=== PATIENT | male | born 1945 | race Caucasian/White ===

== ENCOUNTER 2016-06-09 11:15 | Inpatient (IN) | payer OTHER ==
[~2016-06-09] VITALS: Ht 182.9 cm; Wt 108.4 kg
[~2016-06-09 11:15] MED LIST: ALBU18HF INH; ALBU2.5V NEB; AMLO10TA2 PO; CYCL5TAB PO; DIPH25CA61 PO; FLUT16SP NAS; FLUT1DIS3 INH; HYDR-3138 PO; LISI40TA PO; LOSA50TA6 PO; METO50TA82 PO; PENT400T2 PO; SIMV40TA3 PO; TERA5CAP3 PO; TIOT18CA INH; WARF7.5T6 PO
[2016-06-09] MEDS ORDERED: ONDANSETRON 2MG/ML, 2ML ONE (11:41)
[2016-06-09 11:59] LABS: BLOOD UREA NITROGEN 23 mg/dL (7-18)
[2016-06-09] MEDS ORDERED: ONDANSETRON 2MG/ML, 2ML IVPush ONE (12:00)
[2016-06-09 12:05] LABS: ASPARTATE AMINO TRANSFERASE 36 U/L (15-37); IS PT STATUS REG ER OR PRE ER? YES
[2016-06-09 12:07] LABS: ANTI-Xa-UNFRACTIONATED HEP 0.05 IU/mL (0.30-0.70)
[2016-06-09] MEDS ORDERED: OMNIPAQUE 350 MG/ML, 100ML BOTTLE ONE (12:54)
[2016-06-09 13:01] LABS: ACETAMINOPHEN < 2 mcg/mL (10-30)
[2016-06-09] MEDS ORDERED: SODIUM CHLORIDE 0.9% 1,000 ML IV ONE (13:27)
[2016-06-09] MEDS ORDERED: SODIUM CHLORIDE 0.9% 1,000ML IVBOLUS ONE (13:30)
[2016-06-09] MEDS ORDERED: HYDR-3307 PO (13:34)
[2016-06-09] MEDS ORDERED: CYCLOBENZAPRINE 10 MG TABLET PO PRN (14:00)
[2016-06-09] MEDS ORDERED: SODIUM CHLORIDE FLUSH 10ML SYR IVF PRN (14:00)
[2016-06-09] MEDS ORDERED: HYDROcodone/APAP 10/325 MG TABLET PO PRN (14:00)
[2016-06-09] MEDS ORDERED: OXYcodone IR 5MG TABLET PO PRN (15:00)
[2016-06-09] MEDS ORDERED: ACETAMINOPHEN 325 MG TABLET PO PRN (15:00)
[2016-06-09] MEDS ORDERED: POLYETHYLENE GLYCOL 17 GM PACKET PO PRN (15:00)
[2016-06-09] MEDS ORDERED: BISACODYL 10 MG SUPP PR PRN (15:00)
[2016-06-09] MEDS ORDERED: MORPHINE SULFATE 4 MG/ML, 1ML IVPush PRN (15:00)
[2016-06-09] MEDS ORDERED: ENALAPRILAT 1.25 MG/ML, 2ML IVPush PRN (15:00)
[2016-06-09 15:40] VITALS: BP 140/86
[2016-06-09] MEDS: LOSARTAN MC SCH ×4 (16:00→23:56)
[2016-06-09] MEDS: NICOTINE 14MG/24 HR PATCH.TD24 TD SCH (16:00)
[2016-06-09] MEDS ORDERED: ALBUTEROL/IPRATROPIUM 2.5MG/0.5MG, 3 ML NPPB SCH (16:00)
[2016-06-09] MEDS ORDERED: ONDANSETRON 2MG/ML, 2ML IVP PRN (17:45)
[2016-06-09] MEDS: HEPARIN 5,000 UNITS/ML, 1ML SQ SCH ×2 (17:54→23:56)
[2016-06-09] MEDS: methylPREDNISolone SOD SUCC 125 MG/2 ML IVPush SCH ×2 (17:54→23:56)
[2016-06-09] MEDS: PENTOXIFYLLINE 400 MG TABLET.ER PO SCH ×2 (17:54→21:00)
[2016-06-09] MEDS: DILTIAZEM 30 MG TABLET PO SCH ×2 (17:54→21:00)
[2016-06-09 19:55] LABS: DAU SCREEN DISCLAIMER
[2016-06-09 20:00] VITALS: BP 130/75
[2016-06-09] MEDS ORDERED: DIPHENHYDRAMINE 25 MG CAPSULE PO PRN (21:00)
[2016-06-09] MEDS: TERAZOSIN 5MG CAPSULE PO SCH (21:00)
[2016-06-09] MEDS: FLUTICASONE NASAL SPRAY 16GM NAS SCH (21:24)
[2016-06-09] MEDS: LOSARTAN 50MG TABLET PO SCH (21:25)
[2016-06-09] MEDS: SIMVASTATIN 40 MG TABLET PO SCH (21:26)
[2016-06-10] MEDS ORDERED: MAGNESIUM SULFATE PMX 2GM/50ML 50 ML IV ONE (01:30)
[2016-06-10 02:00] VITALS: BP 133/68
[2016-06-10 04:00] VITALS: BP 138/76
[2016-06-10 04:52] LABS: HEMOGLOBIN 13.6 g/dL (13.7-18.0)
[2016-06-10 05:02] LABS: BLOOD UREA NITROGEN 16 mg/dL (7-18)
[2016-06-10 05:07] LABS: ASPARTATE AMINO TRANSFERASE 22 U/L (15-37)
[2016-06-10] MEDS: methylPREDNISolone SOD SUCC 125 MG/2 ML IVPush SCH ×3 (05:39→17:48)
[2016-06-10] MEDS: DILTIAZEM 30 MG TABLET PO SCH ×4 (05:39→20:17)
[2016-06-10] MEDS ORDERED: IPRATROPIUM 0.5 MG/2.5 ML INHA NPPB SCH (06:00)
[2016-06-10 06:39] VITALS: BP 138/75
[2016-06-10] MEDS: LOSARTAN MC SCH ×2 (08:00)
[2016-06-10] MEDS ORDERED: LORazepam 2 MG/ML, 1ML IVPush ONE (08:30)
[2016-06-10] MEDS: SENNA/DOCUSATE TABLET PO SCH (09:00)
[2016-06-10] MEDS: FLUTICASONE NASAL SPRAY 16GM NAS SCH ×2 (09:00→20:15)
[2016-06-10] MEDS: AMLODIPINE 5 MG TABLET PO SCH (10:40)
[2016-06-10] MEDS: HEPARIN 5,000 UNITS/ML, 1ML SQ SCH ×2 (10:40→17:48)
[2016-06-10] MEDS: PENTOXIFYLLINE 400 MG TABLET.ER PO SCH ×3 (10:41→20:16)
[2016-06-10] MEDS: LOSARTAN 50MG TABLET PO SCH ×2 (10:41→20:17)
[2016-06-10 12:37] VITALS: BP 141/86
[2016-06-10] MEDS: NICOTINE 14MG/24 HR PATCH.TD24 TD SCH (16:00)
[2016-06-10] MEDS ORDERED: WARFARIN 3 MG TABLET PO-COUM SCH (18:00)
[2016-06-10 20:00] VITALS: BP 126/75
[2016-06-10] MEDS: SIMVASTATIN 40 MG TABLET PO SCH (20:16)
[2016-06-10] MEDS: TERAZOSIN 5MG CAPSULE PO SCH (20:18)
[2016-06-10] MEDS: IPRATROPIUM 0.5 MG/2.5 ML INHA NPPB SCH (20:47)
[2016-06-11] MEDS: HEPARIN 5,000 UNITS/ML, 1ML SQ SCH ×2 (01:03→09:39)
[2016-06-11] MEDS: methylPREDNISolone SOD SUCC 125 MG/2 ML IVPush SCH ×3 (01:04→13:08)
[2016-06-11 01:10] VITALS: BP 126/76
[2016-06-11 04:00] VITALS: BP 163/77
[2016-06-11] MEDS: DILTIAZEM 30 MG TABLET PO SCH ×2 (06:00→11:12)
[2016-06-11 07:12] VITALS: BP 143/78
[2016-06-11] MEDS ORDERED: NALOXONE 1 MG/ML, 2ML ONE (08:37)
[2016-06-11] MEDS ORDERED: MIDAZOLAM 1 MG/ML, 5ML ONE ×2 (08:37)
[2016-06-11] MEDS ORDERED: FENTANYL PF 100 MCG/2ML ONE (08:37)
[2016-06-11] MEDS ORDERED: FLUMAZENIL 0.1 MG/1 ML, 5ML ONE (08:37)
[2016-06-11] MEDS: AMLODIPINE 5 MG TABLET PO SCH (09:39)
[2016-06-11] MEDS: SENNA/DOCUSATE TABLET PO SCH (09:39)
[2016-06-11] MEDS: LOSARTAN 50MG TABLET PO SCH (09:39)
[2016-06-11] MEDS: PENTOXIFYLLINE 400 MG TABLET.ER PO SCH (09:40)
[2016-06-11] MEDS: FLUTICASONE NASAL SPRAY 16GM NAS SCH (09:40)
[2016-06-11] MEDS: IPRATROPIUM 0.5 MG/2.5 ML INHA NPPB SCH (09:54)
[2016-06-11 13:45] VITALS: BP 161/87
[2016-06-11] MEDS ORDERED: DILT60TA30 PO (13:49)
[2016-06-11] MEDS ORDERED: DOCU-30 PO (13:49)
[2016-06-11] MEDS ORDERED: PRED5TAB PO (13:49)
[2016-06-11] MEDS ORDERED: WARF5TAB PO-COUM (13:49)
[2016-06-11] MEDS ORDERED: WARFARIN 5 MG TABLET PO-COUM SCH (18:00)
== END 2016-06-11 16:14 | disposition home or self-care (01) | DRG 682 ==
LOC: ED 13:36 → EDIP 13:37 → ED 13:42 → 4EST 15:32
PROVIDERS: ADMIT Internal Medicine; ATTEND Internal Medicine
DX: N17.0 Acute kidney failure with tubular necrosis (principal); G93.41 Metabolic encephalopathy; J44.1 Chronic obstructive pulmonary disease with (acute) exacerbation; D68.59 Other primary thrombophilia; G45.9 Transient cerebral ischemic attack, unspecified; J98.11 Atelectasis; I48.2 Chronic atrial fibrillation; D75.89 Other specified diseases of blood and blood-forming organs; E78.5 Hyperlipidemia, unspecified; F17.200 Nicotine dependence, unspecified, uncomplicated; F40.240 Claustrophobia; I34.0 Nonrheumatic mitral (valve) insufficiency; I73.9 Peripheral vascular disease, unspecified; M17.12 Unilateral primary osteoarthritis, left knee; I11.9 Hypertensive heart disease without heart failure; R59.0 Localized enlarged lymph nodes; N40.0 Benign prostatic hyperplasia without lower urinary tract symptoms; R09.02 Hypoxemia; T45.515A Adverse effect of anticoagulants, initial encounter; Z59.9 Problem related to housing and economic circumstances, unspecified; Z79.01 Long term (current) use of anticoagulants; Z86.718 Personal history of other venous thrombosis and embolism; Z86.73 Personal history of transient ischemic attack (TIA), and cerebral infarction without residual deficits; Z91.19 Patient's noncompliance with other medical treatment and regimen; Z90.79 Acquired absence of other genital organ(s); Z99.81 Dependence on supplemental oxygen; Z90.49 Acquired absence of other specified parts of digestive tract
CPT/HCPCS: 36415; 70450; 70551; 71010; 71275; 80047; 80053; 80061; 80307; 80329; 81001; 82140; 82306; 82607; 82962; 83036; 83605; 83735; 84439; 84443; 84484; 85025; 85520; 85610; 85730; 93005; 93306; 93880; 94640; 96374; J1644; J2250; J2405; J3010; J7644; Q9967; G0480; J2310; J2930; J3475; J7030

== ENCOUNTER → 2016-10-06 | Outpatient (CLI) | payer OTHER ==
[~2016-10-06] MED LIST changes: +DILT60TA30 PO; +DOCU-30 PO; +HYDR-3307 PO; +PRED5TAB PO; +WARF5TAB PO-COUM
== END | disposition home or self-care (01) ==
LOC: CFH 10:16
PROVIDERS: ATTEND Internal Medicine
DX: J43.2 Centrilobular emphysema (principal); I25.10 Atherosclerotic heart disease of native coronary artery without angina pectoris; M25.78 Osteophyte, vertebrae; N28.89 Other specified disorders of kidney and ureter
CPT/HCPCS: 71250

== ENCOUNTER → 2017-02-23 | Outpatient (CLI) | payer OTHER ==
[~2017-02-23] MED LIST changes: +DOCU-131 PO; -DOCU-30 PO; -HYDR-3138 PO; +HYDR-3237 PO
== END ==
LOC: CVU 09:32
PROVIDERS: ATTEND Surgery
DX: I65.23 Occlusion and stenosis of bilateral carotid arteries (principal); I70.203 Unspecified atherosclerosis of native arteries of extremities, bilateral legs; I70.0 Atherosclerosis of aorta; E78.5 Hyperlipidemia, unspecified; I10 Essential (primary) hypertension; I48.91 Unspecified atrial fibrillation; Z86.73 Personal history of transient ischemic attack (TIA), and cerebral infarction without residual deficits
CPT/HCPCS: 93880; 93978

== ENCOUNTER → 2017-03-29 | Outpatient (CLI) | payer OTHER | END | disposition home or self-care (01) | LOC: RAD 12:09 | PROVIDERS: ATTEND Internal Medicine | DX: J44.9 Chronic obstructive pulmonary disease, unspecified (principal); M51.34 Other intervertebral disc degeneration, thoracic region | CPT/HCPCS: 71046 ==

== ENCOUNTER → 2017-09-14 | Outpatient (CLI) | payer OTHER ==
[~2017-09-14] MED LIST changes: -PENT400T2 PO; +PENT400T9 PO; +WARF7.5T46 PO; -WARF7.5T6 PO
== END | disposition home or self-care (01) ==
LOC: CFH 09:51
PROVIDERS: ATTEND Internal Medicine Nephrology
DX: Z12.2 Encounter for screening for malignant neoplasm of respiratory organs (principal); I25.10 Atherosclerotic heart disease of native coronary artery without angina pectoris; N40.0 Benign prostatic hyperplasia without lower urinary tract symptoms; K57.30 Diverticulosis of large intestine without perforation or abscess without bleeding; N28.1 Cyst of kidney, acquired
CPT/HCPCS: 74176; G0297

== ENCOUNTER 2017-12-29 19:27 | Inpatient (IN) | payer OTHER ==
[~2017-12-29] VITALS: Ht 182.9 cm; Wt 105.6 kg
[~2017-12-29 19:27] MED LIST changes: -AMLO10TA2 PO; +AMLO10TA6 PO; -LOSA50TA6 PO; +LOSA50TA7 PO
[2017-12-29] MEDS ORDERED: PANTOPRAZOLE 80 MG in SODIUM CHLORIDE 0.9% 100 ML IV SCH (19:50)
[2017-12-29] MEDS ORDERED: SODIUM CHLORIDE 0.9% 1,000ML IVBOLUS ONE (20:00)
[2017-12-29 20:12] LABS: BASOPHILS # (AUTO) 0.05 x10^3/uL (0-0.1); BASOPHILS % (AUTO) 1 % (0-1); EOSINOPHILS % (AUTO) 4 % (1-7); LYMPHOCYTES # (AUTO) 2.01 x10^3/uL (1-3.4); LYMPHOCYTES % (AUTO) 25 % (22-44); MD NO; MEAN CORPUSCULAR HGB CONC 33.2 g/dL (33.2-36.2); MEAN CORPUSCULAR VOLUME 99.3 fL (81-97); MEAN PLATELET VOLUME 7.2 fL (7.4-10.4); MONOCYTES # (AUTO) 0.76 x10^3/uL (0.2-0.8); MONOCYTES % (AUTO) 9 % (2-9); NEUTROPHILS # (AUTO) 4.95 x10^3/uL (1.8-6.8); NEUTROPHILS % (AUTO) 61 % (42-75); PLATELET COUNT 204 x10^3/uL (130-400); RED BLOOD COUNT 2.83 x10^6/uL (4.38-5.82)
[2017-12-29 20:19] LABS: INTERNATIONAL NORMALIZED RATIO 3.22 (0.93-1.1); PROTHROMBIN TIME 32.7 Seconds (9.6-11.5)
[2017-12-29 20:22] LABS: ALANINE AMINOTRANSFERASE 21 U/L (12-78); ALBUMIN 2.9 g/dL (3.4-5.0); ANION GAP 10 mmol/L (5-15); CALCIUM 8.1 mg/dL (8.5-10.1); CHLORIDE 110 mmol/L (98-107); CREATININE 1.32 mg/dL (0.7-1.3)
[2017-12-29 20:26] LABS: ALKALINE PHOSPHATASE 60 U/L (45-117); BILIRUBIN,TOTAL 0.5 mg/dL (0.2-1.0); TOTAL PROTEIN 5.7 g/dL (6.4-8.2); TROPONIN I < 0.015 ng/mL (0.000-0.045)
[2017-12-29] MEDS ORDERED: PROMETHAZINE 25 MG/ML, 1ML ONE (20:27)
[2017-12-29] MEDS ORDERED: PROMETHAZINE 25 MG/ML, 1ML IM ONE (20:30)
[2017-12-29] MEDS: PANTOPRAZOLE 80 MG in SODIUM CHLORIDE 0.9% 50 ML IVPB ONE ×2 (20:31→21:42)
[2017-12-29] MEDS ORDERED: SODIUM CHLORIDE 0.9% 1,000 ML IV SCH (21:30)
[2017-12-29] MEDS: PANTOPRAZOLE 80 MG in SODIUM CHLORIDE 0.9% 100 ML IV SCH (21:30)
[2017-12-29] MEDS ORDERED: ONDANSETRON 2MG/ML, 2ML IVPush PRN (21:30)
[2017-12-29] MEDS ORDERED: TRELEGY ELLIPTA (21:33)
[2017-12-29] MEDS ORDERED: WARFARIN (21:33)
[2017-12-29] MEDS ORDERED: PRAV40TA2 PO (21:33)
[2017-12-29] MEDS ORDERED: CARTIA (21:33)
[2017-12-29 22:47] VITALS: BP 132/76
[2017-12-29 23:44] VITALS: BP 109/72
[2017-12-30] VITALS (10 sets, daily range): BP systolic 100–142; BP diastolic 49–82
[2017-12-30] MEDS ORDERED: ALBUTEROL SULFATE 2.5 MG/3 ML NPPB PRN
[2017-12-30 04:48] LABS: INTERNATIONAL NORMALIZED RATIO 2.07 (0.93-1.1); PROTHROMBIN TIME 21.2 Seconds (9.6-11.5)
[2017-12-30 04:53] LABS: ALBUMIN 2.9 g/dL (3.4-5.0); ANION GAP 8 mmol/L (5-15); CHLORIDE 118 mmol/L (98-107)
[2017-12-30 04:57] LABS: BASOPHILS # (AUTO) 0.04 x10^3/uL (0-0.1); BASOPHILS % (AUTO) 1 % (0-1); EOSINOPHILS # (AUTO) 0.18 x10^3/uL (0-0.4); EOSINOPHILS % (AUTO) 3 % (1-7); LYMPHOCYTES # (AUTO) 2.08 x10^3/uL (1-3.4); LYMPHOCYTES % (AUTO) 35 % (22-44); MD NO; MEAN CORPUSCULAR HEMOGLOBIN 34.5 pg (27.5-34.5); MEAN CORPUSCULAR HGB CONC 34.6 g/dL (33.2-36.2); MEAN CORPUSCULAR VOLUME 99.8 fL (81-97); MEAN PLATELET VOLUME 7.1 fL (7.4-10.4); MONOCYTES # (AUTO) 0.67 x10^3/uL (0.2-0.8); MONOCYTES % (AUTO) 11 % (2-9); NEUTROPHILS # (AUTO) 2.96 x10^3/uL (1.8-6.8); NEUTROPHILS % (AUTO) 50 % (42-75); PLATELET COUNT 157 x10^3/uL (130-400); RED BLOOD COUNT 2.39 x10^6/uL (4.38-5.82); RED CELL DISTRIBUTION WIDTH 13.5 % (9.4-14.8)
[2017-12-30 04:58] LABS: ALANINE AMINOTRANSFERASE 21 U/L (12-78); ALKALINE PHOSPHATASE 54 U/L (45-117); BILIRUBIN,TOTAL 0.5 mg/dL (0.2-1.0); CALCIUM 8.1 mg/dL (8.5-10.1); CREATININE 1.05 mg/dL (0.7-1.3); TOTAL PROTEIN 5.4 g/dL (6.4-8.2)
[2017-12-30] MEDS: PANTOPRAZOLE 80 MG in SODIUM CHLORIDE 0.9% 100 ML IV SCH ×2 (06:27→17:33)
[2017-12-30] MEDS ORDERED: DILTIAZEM 5 MG/ML, 5ML IVPush ONE (09:30)
[2017-12-30] MEDS: D5%-0.45NACL+KCL 20MEQ 1,000 ML IV SCH ×2 (09:34→21:28)
[2017-12-30] MEDS: METOPROLOL TARTRATE 25 MG TABLET PO SCH ×2 (09:34→17:37)
[2017-12-30] MEDS: FLUTICASONE/VILANTEROL 200-25MCG/INH INH SCH (12:11)
[2017-12-30 16:39] LABS: TROPONIN I < 0.015 ng/mL (0.000-0.045)
[2017-12-30] MEDS: PRAVASTATIN 40 MG TABLET PO SCH (21:26)
[2017-12-30 22:06] LABS: TROPONIN I < 0.015 ng/mL (0.000-0.045)
[2017-12-31] VITALS (9 sets, daily range): BP systolic 104–120; BP diastolic 45–72
[2017-12-31] MEDS: PANTOPRAZOLE 80 MG in SODIUM CHLORIDE 0.9% 100 ML IV SCH ×2 (03:13→15:12)
[2017-12-31 05:22] LABS: INTERNATIONAL NORMALIZED RATIO 1.73 (0.93-1.1); PROTHROMBIN TIME 17.8 Seconds (9.6-11.5)
[2017-12-31 05:25] LABS: ANION GAP 7 mmol/L (5-15); CALCIUM 8.9 mg/dL (8.5-10.1); CHLORIDE 118 mmol/L (98-107)
[2017-12-31 05:30] LABS: BASOPHILS # (AUTO) 0.06 x10^3/uL (0-0.1); BASOPHILS % (AUTO) 1 % (0-1); CREATININE 1.27 mg/dL (0.7-1.3); EOSINOPHILS # (AUTO) 0.48 x10^3/uL (0-0.4); EOSINOPHILS % (AUTO) 6 % (1-7); LYMPHOCYTES # (AUTO) 2.04 x10^3/uL (1-3.4); LYMPHOCYTES % (AUTO) 25 % (22-44); MD NO; MEAN CORPUSCULAR HEMOGLOBIN 33.5 pg (27.5-34.5); MEAN CORPUSCULAR HGB CONC 33.7 g/dL (33.2-36.2); MEAN CORPUSCULAR VOLUME 99.5 fL (81-97); MONOCYTES % (AUTO) 9 % (2-9); NEUTROPHILS # (AUTO) 4.92 x10^3/uL (1.8-6.8); NEUTROPHILS % (AUTO) 60 % (42-75); PLATELET COUNT 195 x10^3/uL (130-400); RED BLOOD COUNT 2.61 x10^6/uL (4.38-5.82); TROPONIN I < 0.015 ng/mL (0.000-0.045)
[2017-12-31] MEDS: METOPROLOL TARTRATE 25 MG TABLET PO SCH ×2 (06:27→17:31)
[2017-12-31] MEDS ORDERED: PROPOFOL 10 MG/ML, 20ML ONE (07:50)
[2017-12-31] MEDS ORDERED: FENTANYL PF 100 MCG/2ML IV PRN (08:30)
[2017-12-31] MEDS: FLUTICASONE/VILANTEROL 200-25MCG/INH INH SCH (09:53)
[2017-12-31] MEDS ORDERED: OMNIPAQUE 350 MG/ML, 100ML BOTTLE ONE (11:00)
[2017-12-31] MEDS: OXYcodone IR 5MG TABLET PO PRN ×2 (11:51→17:34)
[2017-12-31] MEDS ORDERED: ACETAMINOPHEN 500 MG TABLET PO PRN (12:00)
[2017-12-31] MEDS: POTASSIUM CHLORIDE 20 MEQ in DEXTROSE 5% 1,000 ML IV SCH (13:07)
[2017-12-31] MEDS: METHOCARBAMOL 500 MG TABLET PO PRN ×2 (13:22→20:57)
[2017-12-31] MEDS ORDERED: GOLYTELY 4,000ML ORAL.SOL PO ONE (18:00)
[2017-12-31] MEDS: PRAVASTATIN 40 MG TABLET PO SCH (20:57)
[2018-01-01 01:00] VITALS: BP 100/60
[2018-01-01] MEDS: PANTOPRAZOLE 80 MG in SODIUM CHLORIDE 0.9% 100 ML IV SCH ×3 (04:05→23:42)
[2018-01-01 04:44] LABS: BASOPHILS # (AUTO) 0.06 x10^3/uL (0-0.1); BASOPHILS % (AUTO) 1 % (0-1); EOSINOPHILS # (AUTO) 0.35 x10^3/uL (0-0.4); EOSINOPHILS % (AUTO) 4 % (1-7); LYMPHOCYTES # (AUTO) 2.14 x10^3/uL (1-3.4); LYMPHOCYTES % (AUTO) 27 % (22-44); MD NO; MEAN CORPUSCULAR HEMOGLOBIN 34.1 pg (27.5-34.5); MEAN CORPUSCULAR HGB CONC 33.8 g/dL (33.2-36.2); MEAN CORPUSCULAR VOLUME 100.9 fL (81-97); MEAN PLATELET VOLUME 7.4 fL (7.4-10.4); MONOCYTES # (AUTO) 0.86 x10^3/uL (0.2-0.8); MONOCYTES % (AUTO) 11 % (2-9); NEUTROPHILS # (AUTO) 4.59 x10^3/uL (1.8-6.8); NEUTROPHILS % (AUTO) 57 % (42-75); PLATELET COUNT 170 x10^3/uL (130-400); RED CELL DISTRIBUTION WIDTH 13.9 % (9.4-14.8)
[2018-01-01 04:50] LABS: INTERNATIONAL NORMALIZED RATIO 1.64 (0.93-1.1); PROTHROMBIN TIME 16.9 Seconds (9.6-11.5)
[2018-01-01 04:55] LABS: ANION GAP 10 mmol/L (5-15); CHLORIDE 114 mmol/L (98-107)
[2018-01-01 04:57] LABS: CREATININE 1.59 mg/dL (0.7-1.3)
[2018-01-01] MEDS: METOPROLOL TARTRATE 25 MG TABLET PO SCH ×2 (06:20→17:30)
[2018-01-01 07:37] VITALS: BP 119/72
[2018-01-01] MEDS: POTASSIUM CHLORIDE 20 MEQ in DEXTROSE 5% 1,000 ML IV SCH (09:12)
[2018-01-01] MEDS: FLUTICASONE/VILANTEROL 200-25MCG/INH INH SCH (09:12)
[2018-01-01] MEDS: OXYcodone IR 5MG TABLET PO PRN (09:26)
[2018-01-01] MEDS ORDERED: SUGAMMADEX 200 MG/2 ML IVPush ONE ×2 (11:32→11:34)
[2018-01-01 12:34] VITALS: BP 111/56
[2018-01-01 17:25] VITALS: BP 128/70
[2018-01-01 18:40] VITALS: BP 133/64
[2018-01-01] MEDS: PRAVASTATIN 40 MG TABLET PO SCH (20:29)
[2018-01-02 00:50] VITALS: BP 110/62
[2018-01-02] MEDS: METOPROLOL TARTRATE 25 MG TABLET PO SCH ×2 (06:00→17:25)
[2018-01-02 06:31] VITALS: BP 107/56
[2018-01-02] MEDS ORDERED: PROPOFOL 50 ML ONE (08:49)
[2018-01-02] MEDS ORDERED: ONDANSETRON 2MG/ML, 2ML IV PRN (09:30)
[2018-01-02] MEDS ORDERED: ALBUTEROL/IPRATROPIUM 2.5MG/0.5MG, 3 ML NPPB PRN (09:30)
[2018-01-02] MEDS ORDERED: hydrALAzine 20 MG/ML, 1ML IV PRN (09:30)
[2018-01-02] MEDS ORDERED: LABETALOL 5MG/ML, 20ML IV PRN (09:30)
[2018-01-02] MEDS ORDERED: FENTANYL PF 100 MCG/2ML IV PRN (09:30)
[2018-01-02] MEDS ORDERED: ACETAMINOPHEN 325 MG TABLET PO PRN (09:30)
[2018-01-02] MEDS: FLUTICASONE/VILANTEROL 200-25MCG/INH INH SCH (10:51)
[2018-01-02] MEDS: METHOCARBAMOL 500 MG TABLET PO PRN (10:51)
[2018-01-02 12:10] VITALS: BP 101/51
[2018-01-02] MEDS: PANTOPRAZOLE 80 MG in SODIUM CHLORIDE 0.9% 100 ML IV SCH (12:59)
[2018-01-02 13:26] VITALS: BP 102/59
[2018-01-02 17:24] VITALS: BP 126/71
[2018-01-02 19:16] VITALS: BP 106/55
[2018-01-02] MEDS: PRAVASTATIN 40 MG TABLET PO SCH (20:48)
[2018-01-03 01:09] VITALS: BP 110/60
[2018-01-03 05:22] VITALS: BP 124/71
[2018-01-03] MEDS: METOPROLOL TARTRATE 25 MG TABLET PO SCH (05:22)
[2018-01-03 05:45] LABS: MEAN CORPUSCULAR HEMOGLOBIN 34.8 pg (27.5-34.5); MEAN CORPUSCULAR HGB CONC 34.6 g/dL (33.2-36.2); MEAN CORPUSCULAR VOLUME 100.5 fL (81-97); PLATELET COUNT 177 x10^3/uL (130-400); RED BLOOD COUNT 2.17 x10^6/uL (4.38-5.82); RED CELL DISTRIBUTION WIDTH 14.2 % (9.4-14.8)
[2018-01-03 05:53] LABS: CHLORIDE 114 mmol/L (98-107)
[2018-01-03 06:00] LABS: ANION GAP 9 mmol/L (5-15); CALCIUM 8.2 mg/dL (8.5-10.1); CREATININE 1.28 mg/dL (0.7-1.3)
[2018-01-03 06:37] VITALS: BP 113/65
[2018-01-03 06:37] LABS: BASOPHILS # (AUTO) 0.04 x10^3/uL (0-0.1); BASOPHILS % (AUTO) 1 % (0-1); EOSINOPHILS # (AUTO) 0.44 x10^3/uL (0-0.4); EOSINOPHILS % (AUTO) 8 % (1-7); LYMPHOCYTES # (AUTO) 1.61 x10^3/uL (1-3.4); LYMPHOCYTES % (AUTO) 28 % (22-44); MD SCAN; MONOCYTES # (AUTO) 0.68 x10^3/uL (0.2-0.8); MONOCYTES % (AUTO) 12 % (2-9); NEUTROPHILS # (AUTO) 3.05 x10^3/uL (1.8-6.8); NEUTROPHILS % (AUTO) 53 % (42-75)
[2018-01-03] MEDS: PANTOPRAZOLE 40 MG IV IVPush SCH ×2 (08:10→09:00)
[2018-01-03] MEDS: FLUTICASONE/VILANTEROL 200-25MCG/INH INH SCH (09:34)
[2018-01-03] MEDS ORDERED: FERR240T PO (10:38)
[2018-01-03] MEDS ORDERED: PANT40TA3 PO (10:38)
[2018-01-03] MEDS ORDERED: DIPH25TA65 PO (10:41)
== END 2018-01-03 12:30 | disposition home or self-care (01) | DRG 542 ==
LOC: ED 20:57 → EDIP 21:04 → SUATTDRO 21:16 → 4WST 22:33 → DCLOUNGE 01-03 12:10
PROVIDERS: ADMIT Hospitalist; ATTEND Hospitalist
PROC: 30233L1 Transfusion of Nonautologous Fresh Plasma into Peripheral Vein, Percutaneous Approach (ICD-10-PCS; principal; 2017-12-29)
PROC: 30233K1 Transfusion of Nonautologous Frozen Plasma into Peripheral Vein, Percutaneous Approach (ICD-10-PCS; 2017-12-29)
PROC: 0DJ08ZZ Inspection of Upper Intestinal Tract, Via Natural or Artificial Opening Endoscopic (ICD-10-PCS; 2017-12-31)
PROC: 0DJD8ZZ Inspection of Lower Intestinal Tract, Via Natural or Artificial Opening Endoscopic (ICD-10-PCS; 2018-01-02)
PROC: 0DB68ZX Excision of Stomach, Via Natural or Artificial Opening Endoscopic, Diagnostic (ICD-10-PCS; 2018-01-02)
DX: C49.A2 Gastrointestinal stromal tumor of stomach (principal); E43 Unspecified severe protein-calorie malnutrition; K92.2 Gastrointestinal hemorrhage, unspecified; D68.69 Other thrombophilia; D62 Acute posthemorrhagic anemia; E87.0 Hyperosmolality and hypernatremia; J96.10 Chronic respiratory failure, unspecified whether with hypoxia or hypercapnia; N17.9 Acute kidney failure, unspecified; E78.5 Hyperlipidemia, unspecified; E87.5 Hyperkalemia; F17.210 Nicotine dependence, cigarettes, uncomplicated; I10 Essential (primary) hypertension; I48.0 Paroxysmal atrial fibrillation; K31.89 Other diseases of stomach and duodenum; I73.9 Peripheral vascular disease, unspecified; J44.9 Chronic obstructive pulmonary disease, unspecified; Z79.01 Long term (current) use of anticoagulants; K64.0 First degree hemorrhoids; Z86.718 Personal history of other venous thrombosis and embolism; Z68.31 Body mass index [BMI] 31.0-31.9, adult; M19.90 Unspecified osteoarthritis, unspecified site; Z90.49 Acquired absence of other specified parts of digestive tract
CPT/HCPCS: 36415; 71045; 71260; 74160; 80048; 80053; 83735; 83880; 84100; 84443; 84484; 85014; 85018; 85025; 85610; 85730; 86850; 86900; 86923; 88172; 88173; 88305; 88341; 88342; 93005; 93306; 96361; 96365; 96372; G0378; J2550; J2704; J3480; J7070; Q9967; C9113; J7030; P9017

== ENCOUNTER → 2018-01-25 | Outpatient (CLI) | payer OTHER ==
[~2018-01-25] MED LIST changes: +ASPI81TA45 PO; +CARTIA; +CYAN50008 PO; +DILT300C32 PO; +DIPH25TA65 PO; +FERR240T PO; +FERR240T2 PO; +FLUT1BLS3 INH; +OMEG-172 PO; +OMEGA 3 PO; +PANT40TA3 PO; +PRAV40TA2 PO; +TRELEGY ELLIPTA; +TURM500C4 PO; +VARE1TAB21 PO; +WARFARIN
[2018-01-25 12:04] LABS: BASOPHILS # (AUTO) 0.05 x10^3/uL (0-0.1); BASOPHILS % (AUTO) 1 % (0-1); EOSINOPHILS # (AUTO) 0.32 x10^3/uL (0-0.4); EOSINOPHILS % (AUTO) 5 % (1-7); LYMPHOCYTES # (AUTO) 1.18 x10^3/uL (1-3.4); LYMPHOCYTES % (AUTO) 19 % (22-44); MD NO; MEAN CORPUSCULAR HEMOGLOBIN 35.3 pg (27.5-34.5); MEAN CORPUSCULAR HGB CONC 33.6 g/dL (33.2-36.2); MEAN CORPUSCULAR VOLUME 104.8 fL (81-97); MEAN PLATELET VOLUME 6.1 fL (7.4-10.4); MONOCYTES # (AUTO) 0.69 x10^3/uL (0.2-0.8); MONOCYTES % (AUTO) 11 % (2-9); NEUTROPHILS # (AUTO) 3.94 x10^3/uL (1.8-6.8); NEUTROPHILS % (AUTO) 64 % (42-75); PLATELET COUNT 231 x10^3/uL (130-400); RED BLOOD COUNT 3.03 x10^6/uL (4.38-5.82); RED CELL DISTRIBUTION WIDTH 17.2 % (9.4-14.8)
[2018-01-25 12:15] LABS: ANION GAP 7 mmol/L (5-15); CALCIUM 8.6 mg/dL (8.5-10.1); CHLORIDE 112 mmol/L (98-107); CREATININE 1.08 mg/dL (0.7-1.3); INTERNATIONAL NORMALIZED RATIO 3.03 (0.93-1.1); PROTHROMBIN TIME 30.8 Seconds (9.6-11.5)
== END | disposition home or self-care (01) ==
LOC: STAR 10:51
DX: Z01.812 Encounter for preprocedural laboratory examination (principal)
CPT/HCPCS: 36415; 80048; 85025; 85610; 85730

== ENCOUNTER 2018-02-02 10:03 | Inpatient (IN) | payer OTHER ==
[~2018-02-02] VITALS: Ht 182.9 cm; Wt 107.5 kg
[2018-02-02] MEDS ORDERED: LACTATED RINGERS 1,000 ML IV SCH ×2 (10:20→17:33)
[2018-02-02] MEDS ORDERED: ACETAMINOPHEN 500 MG TABLET PO ONE (10:30)
[2018-02-02] MEDS ORDERED: ONDANSETRON ODT 8 MG PO ONE (10:30)
[2018-02-02] MEDS ORDERED: OXYcodone IR 5MG TABLET PO ONE (10:30)
[2018-02-02 10:35] VITALS: BP 162/81
[2018-02-02 11:17] LABS: INTERNATIONAL NORMALIZED RATIO 1.21 (0.93-1.1); PROTHROMBIN TIME 12.7 Seconds (9.6-11.5)
[2018-02-02] MEDS ORDERED: HEPARIN 1,000 UNITS/ML, 10ML ONE ×2 (12:45→14:45)
[2018-02-02] MEDS ORDERED: BUPIVACAINE/PF-EPI 0.5% 1:200K ONE (12:45)
[2018-02-02] MEDS ORDERED: LIDOCAINE/PF 1%, 30ML ONE (12:45)
[2018-02-02] MEDS ORDERED: PAPAVERINE 30 MG/ML, 2ML ONE (12:45)
[2018-02-02] MEDS ORDERED: THROMBIN 5,000 UNIT VIAL TP ONE (12:45)
[2018-02-02] MEDS ORDERED: PROTAMINE SULFATE 10 MG/ML, 5ML ONE (12:45)
[2018-02-02] MEDS ORDERED: BACITRACIN 50,000 UNIT ONE (12:46)
[2018-02-02] MEDS ORDERED: FENTANYL PF 100 MCG/2ML ONE ×2 (13:32→15:35)
[2018-02-02] MEDS ORDERED: CEFAZOLIN 1,000 MG ONE ×2 (13:33)
[2018-02-02] MEDS ORDERED: PROPOFOL 10 MG/ML, 20ML ONE (13:33)
[2018-02-02] MEDS ORDERED: ROCURONIUM 10MG/ML,5ML ONE (13:33)
[2018-02-02] MEDS ORDERED: BUPIVACAINE/PF-EPI 0.5% 1:200K INFIL ONE (13:49)
[2018-02-02] MEDS ORDERED: ONDANSETRON 2MG/ML, 2ML IV PRN (14:00)
[2018-02-02] MEDS ORDERED: EPHEDRINE 50 MG/ML, 1ML IVPush PRN (14:00)
[2018-02-02] MEDS ORDERED: ALBUTEROL SULFATE 2.5 MG/3 ML NPPB PRN (14:00)
[2018-02-02] MEDS ORDERED: OXYcodone 5 MG/5 ML ORAL.SOL UDC PO PRN (14:00)
[2018-02-02] MEDS ORDERED: hydrALAzine 20 MG/ML, 1ML IV PRN (14:00)
[2018-02-02] MEDS ORDERED: FENTANYL PF 100 MCG/2ML IV PRN (14:00)
[2018-02-02] MEDS ORDERED: METOPROLOL 1 MG/ML, 5ML IV PRN (14:00)
[2018-02-02] MEDS ORDERED: LABETALOL 5MG/ML, 20ML IV PRN (14:00)
[2018-02-02] MEDS ORDERED: MORPHINE SULFATE 4 MG/ML, 1ML IVPush PRN (14:00)
[2018-02-02] MEDS ORDERED: DEXAMETHASONE 4 MG/ML, 1ML ONE ×2 (14:43)
[2018-02-02] MEDS ORDERED: NEOSTIGMINE 1 MG/ML, 10ML ONE (16:36)
[2018-02-02] MEDS ORDERED: GLYCOPYRROLATE 0.2MG/1ML, 5ML ONE (16:36)
[2018-02-02] MEDS ORDERED: LIDOCAINE-MPF 2% ,5ML ONE (16:36)
[2018-02-02] MEDS ORDERED: ALBUTEROL SULFATE 2.5 MG/3 ML ONE ×2 (16:56→17:51)
[2018-02-02] MEDS ORDERED: OXYcodone 5 MG/5 ML ORAL.SOL UDC ONE (17:21)
[2018-02-02] MEDS ORDERED: ENOXAPARIN 40 MG/0.4 ML SQ SCH (18:00)
[2018-02-02] MEDS ORDERED: HYDROmorphone 2 MG/ML, 1ML ONE (18:13)
[2018-02-02] MEDS ORDERED: ONDANSETRON 2MG/ML, 2ML ONE (18:21)
[2018-02-02] MEDS ORDERED: HYDROmorphone 2 MG/ML, 1ML IVPush PRN (18:30)
[2018-02-02] MEDS ORDERED: PRAVASTATIN 40 MG TABLET PO SCH (21:00)
[2018-02-02] MEDS ORDERED: TERAZOSIN 5MG CAPSULE PO SCH (21:00)
[2018-02-02] MEDS: LOSARTAN 50MG TABLET PO SCH ×2 (21:00→23:36)
[2018-02-02] MEDS ORDERED: HYDROmorphone 1 MG/ML, 1ML IV ONE (21:00)
[2018-02-02] MEDS: CYANOCOBALAMIN 1,000 MCG TABLET PO SCH ×2 (21:00→23:25)
[2018-02-02] MEDS ORDERED: HYDROcodone/APAP 5/325 TABLET PO PRN (22:30)
[2018-02-02] MEDS ORDERED: ONDANSETRON 2MG/ML, 2ML IVPush PRN (22:30)
[2018-02-02] MEDS ORDERED: WARFARIN 7.5 MG TABLET PO-COUM ONE (23:00)
[2018-02-03] MEDS ORDERED: ALBUTEROL SULFATE 2.5 MG/3 ML NPPB PRN
[2018-02-03 02:00] VITALS: BP 99/62
[2018-02-03] MEDS ORDERED: ENOXAPARIN 40 MG/0.4 ML SQ SCH (08:00)
[2018-02-03 08:20] VITALS: BP 137/86
[2018-02-03] MEDS ORDERED: ASPIRIN 81 MG TABLET CHEW PO SCH (09:00)
[2018-02-03] MEDS ORDERED: UMECLIDINIUM HOMEINH SCH (09:00)
[2018-02-03] MEDS ORDERED: FERROUS GLUCONATE 324 MG TABLET PO SCH (09:00)
[2018-02-03] MEDS ORDERED: FLUTICASONE HOMEINH SCH (09:00)
[2018-02-03] MEDS ORDERED: WARFARIN 7.5 MG TABLET PO-COUM SCH (09:00)
[2018-02-03] MEDS ORDERED: AMLODIPINE 10 MG TAB PO SCH (09:00)
[2018-02-03] MEDS ORDERED: DILTIAZEM 300 MG CAP.ER.24H PO SCH (09:00)
[2018-02-03] MEDS ORDERED: VILANTEROL HOMEINH SCH (09:00)
[2018-02-03] MEDS ORDERED: [UNRECOGNIZED DRUG - OTHER] HOMEINH SCH (09:00)
[2018-02-03 13:00] VITALS: BP 130/70
[2018-02-04] MEDS ORDERED: WARFARIN 7.5 MG TABLET PO-COUM SCH (09:00)
== END 2018-02-03 15:52 | disposition home or self-care (01) | DRG 37 ==
LOC: ORIP 10:03 → 4NOR 20:40
PROC: 03UK0JZ Supplement Right Internal Carotid Artery with Synthetic Substitute, Open Approach (ICD-10-PCS; 2018-02-02)
PROC: 03CM0Z6 (ICD-10-PCS; 2018-02-02)
PROC: 03UM0JZ Supplement Right External Carotid Artery with Synthetic Substitute, Open Approach (ICD-10-PCS; 2018-02-02)
PROC: 03CK0ZZ Extirpation of Matter from Right Internal Carotid Artery, Open Approach (ICD-10-PCS; principal; 2018-02-02 12:30)
DX: I65.23 Occlusion and stenosis of bilateral carotid arteries (principal); J96.01 Acute respiratory failure with hypoxia; G47.30 Sleep apnea, unspecified; E78.5 Hyperlipidemia, unspecified; J45.909 Unspecified asthma, uncomplicated; I48.91 Unspecified atrial fibrillation; J44.9 Chronic obstructive pulmonary disease, unspecified; I70.213 Atherosclerosis of native arteries of extremities with intermittent claudication, bilateral legs; I11.0 Hypertensive heart disease with heart failure; I50.9 Heart failure, unspecified; G47.33 Obstructive sleep apnea (adult) (pediatric); F17.210 Nicotine dependence, cigarettes, uncomplicated; Z90.49 Acquired absence of other specified parts of digestive tract; Z86.73 Personal history of transient ischemic attack (TIA), and cerebral infarction without residual deficits; Z82.49 Family history of ischemic heart disease and other diseases of the circulatory system; Z83.3 Family history of diabetes mellitus; Z80.3 Family history of malignant neoplasm of breast
CPT/HCPCS: 36415; 85610; 85730; 86850; 86900; 93005; G0378; J0690; J1100; J1170; J1644; J1650; J2405; J2704; J2710; J2720; J3010; J3490; Q0162; C1781; J2440; J7120

== ENCOUNTER 2018-02-20 12:40 | Observation (INO) | payer MEDICARE, OTHER ==
[~2018-02-20] VITALS: Ht 182.9 cm; Wt 103.5 kg
[~2018-02-20 12:40] MED LIST changes: -AMLO10TA6 PO; +AMLO10TA8 PO; +LOSA50TA14 PO; -LOSA50TA7 PO
[2018-02-20] MEDS ORDERED: SODIUM CHLORIDE 0.9% 1,000 ML IV ONE (12:53)
[2018-02-20] MEDS ORDERED: PANTOPRAZOLE 40 MG IV IVPush ONE (13:00)
[2018-02-20 13:18] LABS: INTERNATIONAL NORMALIZED RATIO 2.68 (0.93-1.1); PROTHROMBIN TIME 27.4 Seconds (9.6-11.5)
[2018-02-20 13:22] LABS: ALANINE AMINOTRANSFERASE 18 U/L (12-78); ALBUMIN 3.4 g/dL (3.4-5.0); ANION GAP 9 mmol/L (5-15); CHLORIDE 113 mmol/L (98-107); CREATININE 1.38 mg/dL (0.7-1.3)
[2018-02-20 13:24] LABS: ALKALINE PHOSPHATASE 71 U/L (45-117); BILIRUBIN,TOTAL 0.2 mg/dL (0.2-1.0); TOTAL PROTEIN 6.3 g/dL (6.4-8.2)
[2018-02-20 13:26] LABS: BASOPHILS # (AUTO) 0.06 x10^3/uL (0-0.1); BASOPHILS % (AUTO) 1 % (0-1); EOSINOPHILS # (AUTO) 0.28 x10^3/uL (0-0.4); EOSINOPHILS % (AUTO) 3 % (1-7); LYMPHOCYTES % (AUTO) 19 % (22-44); MD NO; MEAN CORPUSCULAR HEMOGLOBIN 34.8 pg (27.5-34.5); MEAN CORPUSCULAR HGB CONC 33.9 g/dL (33.2-36.2); MEAN CORPUSCULAR VOLUME 102.6 fL (81-97); MEAN PLATELET VOLUME 7.6 fL (7.4-10.4); MONOCYTES # (AUTO) 0.55 x10^3/uL (0.2-0.8); MONOCYTES % (AUTO) 6 % (2-9); NEUTROPHILS # (AUTO) 6.01 x10^3/uL (1.8-6.8); NEUTROPHILS % (AUTO) 71 % (42-75); PLATELET COUNT 237 x10^3/uL (130-400); RED BLOOD COUNT 2.78 x10^6/uL (4.38-5.82); RED CELL DISTRIBUTION WIDTH 14.3 % (9.4-14.8)
[2018-02-20] MEDS ORDERED: PHYTONADIONE 10 MG/ML, 1ML IM ONE (14:30)
[2018-02-20] MEDS ORDERED: ONDANSETRON 2MG/ML, 2ML ONE (14:35)
[2018-02-20] MEDS ORDERED: MORPHINE SULFATE 4 MG/ML, 1ML ONE (14:37)
[2018-02-20] MEDS ORDERED: PANTOPRAZOLE 40 MG IV ONE (14:37)
--- NOTE | 2018-02-20 14:46 | NUR ---
PT MEDICATED WITH ZOFRAN AND MORPINE, PROTONIX IV AND NS RUNNING AT 250ML/HR. ADMITTING MD AT BEDSIDE.
[2018-02-20] MEDS ORDERED: ONDANSETRON 2MG/ML, 2ML IVPush ONE (15:00)
[2018-02-20] MEDS ORDERED: MORPHINE SULFATE 4 MG/ML, 1ML IVPush PRN (15:00)
[2018-02-20] MEDS: SODIUM CHLORIDE 0.9% 1,000 ML IV SCH (15:17)
[2018-02-20] MEDS ORDERED: PHYTONADIONE 10 MG/ML, 1ML ONE (15:24)
[2018-02-20] MEDS ORDERED: ONDANSETRON 2MG/ML, 2ML IVPush PRN (15:30)
[2018-02-20] MEDS ORDERED: SODIUM CHLORIDE 0.9%, 500ML IVBOLUS ONE (15:30)
[2018-02-20] MEDS ORDERED: ONDANSETRON ODT 4 MG PO PRN (15:30)
[2018-02-20] MEDS: PENTOXIFYLLINE 400 MG TABLET.ER PO SCH ×2 (16:05→21:20)
[2018-02-20 16:16] VITALS: BP 133/83
[2018-02-20] MEDS: BUDESONIDE 0.5 MG/2 ML INHA HHN SCH (16:30)
[2018-02-20] MEDS: ALBUTEROL SULFATE 2.5 MG/3 ML HHN SCH ×2 (16:30→22:30)
[2018-02-20 17:42] LABS: TROPONIN I < 0.015 ng/mL (0.000-0.045)
[2018-02-20 19:17] VITALS: BP 117/60
[2018-02-20] MEDS ORDERED: DIPHENHYDRAMINE 50 MG CAPSULE ONE (21:08)
[2018-02-20] MEDS: DIPHENHYDRAMINE 50 MG CAPSULE PO PRN (21:20)
[2018-02-20] MEDS: CYANOCOBALAMIN 1,000 MCG TABLET PO SCH (21:21)
[2018-02-20] MEDS: PRAVASTATIN 40 MG TABLET PO SCH (21:22)
[2018-02-20] MEDS: PANTOPRAZOLE 40 MG IV IVPush SCH (21:23)
[2018-02-20 23:42] LABS: TROPONIN I 0.016 ng/mL (0.000-0.045)
[2018-02-21] VITALS (8 sets, daily range): BP systolic 100–131; BP diastolic 59–81
[2018-02-21] MEDS: SODIUM CHLORIDE 0.9% 1,000 ML IV SCH ×3 (01:00→21:29)
[2018-02-21] MEDS: morphine SULFATE 10 MG/ML, 1ML IVPush PRN ×3 (02:14→18:06)
[2018-02-21] MEDS: ALBUTEROL SULFATE 2.5 MG/3 ML HHN SCH ×4 (04:30→22:30)
[2018-02-21] MEDS: BUDESONIDE 0.5 MG/2 ML INHA HHN SCH ×2 (04:30→15:16)
[2018-02-21 06:49] LABS: INTERNATIONAL NORMALIZED RATIO 1.93 (0.93-1.1); PROTHROMBIN TIME 19.9 Seconds (9.6-11.5)
[2018-02-21 06:50] LABS: MEAN CORPUSCULAR HEMOGLOBIN 34.8 pg (27.5-34.5); MEAN CORPUSCULAR HGB CONC 33.9 g/dL (33.2-36.2); MEAN CORPUSCULAR VOLUME 102.7 fL (81-97); PLATELET COUNT 180 x10^3/uL (130-400); RED CELL DISTRIBUTION WIDTH 14.1 % (9.4-14.8)
[2018-02-21 06:52] LABS: ANION GAP 8 mmol/L (5-15); CALCIUM 8.4 mg/dL (8.5-10.1); CHLORIDE 116 mmol/L (98-107); CREATININE 1.15 mg/dL (0.7-1.3); IRON LEVEL 43 mcg/dL (65-175)
[2018-02-21 07:19] LABS: % IRON SATURATION 14 % (20-55); TOTAL IRON BINDING CAPACITY 297 mcg/dL (250-450)
[2018-02-21 08:12] LABS: <PLATELET ESTIMATE> ADEQUATE; <PLT MORPHOLOGY> NORMAL PLT MORPH; ANISOCYTOSIS 1+; BASOPHILS # (AUTO) 0.07 x10^3/uL (0-0.1); BASOPHILS % (AUTO) 1 % (0-1); EOSINOPHILS % (AUTO) 7 % (1-7); LYMPHOCYTES # (AUTO) 1.45 x10^3/uL (1-3.4); LYMPHOCYTES % (AUTO) 26 % (22-44); MD MORPH REVIEW ONLY; MONOCYTES # (AUTO) 0.45 x10^3/uL (0.2-0.8); MONOCYTES % (AUTO) 8 % (2-9); NEUTROPHILS # (AUTO) 3.17 x10^3/uL (1.8-6.8); NEUTROPHILS % (AUTO) 57 % (42-75); POLYCHROMASIA 1+
[2018-02-21] MEDS: PENTOXIFYLLINE 400 MG TABLET.ER PO SCH ×3 (09:00→20:27)
[2018-02-21] MEDS ORDERED: FLUTICASONE/VILANTEROL 100-25MCG/INH INH SCH (09:00)
[2018-02-21] MEDS: DILTIAZEM 300 MG CAP.ER.24H PO SCH (09:00)
[2018-02-21] MEDS ORDERED: FENTANYL PF 100 MCG/2ML ONE (09:40)
[2018-02-21] MEDS ORDERED: MIDAZOLAM 1 MG/ML, 5ML ONE (09:40)
[2018-02-21] MEDS: PANTOPRAZOLE 40 MG IV IVPush SCH (11:07)
[2018-02-21] MEDS: FERROUS SULFATE 325 MG TABLET PO SCH (17:45)
[2018-02-21] MEDS: PRAVASTATIN 40 MG TABLET PO SCH (20:28)
[2018-02-21] MEDS: DIPHENHYDRAMINE 50 MG CAPSULE PO PRN (20:28)
[2018-02-21] MEDS: CYANOCOBALAMIN 1,000 MCG TABLET PO SCH (20:28)
[2018-02-22 01:15] VITALS: BP 128/73
[2018-02-22] MEDS: BUDESONIDE 0.5 MG/2 ML INHA HHN SCH (02:53)
[2018-02-22] MEDS: ALBUTEROL SULFATE 2.5 MG/3 ML HHN SCH ×2 (02:53→10:30)
[2018-02-22 05:27] LABS: BASOPHILS # (AUTO) 0.05 x10^3/uL (0-0.1); BASOPHILS % (AUTO) 1 % (0-1); EOSINOPHILS # (AUTO) 0.44 x10^3/uL (0-0.4); EOSINOPHILS % (AUTO) 9 % (1-7); LYMPHOCYTES # (AUTO) 1.44 x10^3/uL (1-3.4); LYMPHOCYTES % (AUTO) 28 % (22-44); MD NO; MEAN CORPUSCULAR HGB CONC 33.8 g/dL (33.2-36.2); MEAN CORPUSCULAR VOLUME 100.7 fL (81-97); MEAN PLATELET VOLUME 7.7 fL (7.4-10.4); MONOCYTES % (AUTO) 10 % (2-9); NEUTROPHILS # (AUTO) 2.71 x10^3/uL (1.8-6.8); NEUTROPHILS % (AUTO) 53 % (42-75); PLATELET COUNT 129 x10^3/uL (130-400); RED BLOOD COUNT 2.46 x10^6/uL (4.38-5.82); RED CELL DISTRIBUTION WIDTH 15.8 % (9.4-14.8)
[2018-02-22 05:32] LABS: ANION GAP 6 mmol/L (5-15); CALCIUM 7.7 mg/dL (8.5-10.1); CHLORIDE 116 mmol/L (98-107); CREATININE 1.03 mg/dL (0.7-1.3)
[2018-02-22] MEDS: ACETAMINOPHEN 325 MG TABLET PO PRN ×2 (05:37→08:35)
[2018-02-22] MEDS ORDERED: OMEPRAZOLE 20 MG CAPSULE.DR PO SCH (06:00)
[2018-02-22] MEDS: SODIUM CHLORIDE 0.9% 1,000 ML IV SCH (07:23)
[2018-02-22 08:34] VITALS: BP 107/70
[2018-02-22] MEDS: PENTOXIFYLLINE 400 MG TABLET.ER PO SCH (08:35)
[2018-02-22] MEDS: FERROUS SULFATE 325 MG TABLET PO SCH ×2 (08:35→11:14)
[2018-02-22] MEDS: DILTIAZEM 300 MG CAP.ER.24H PO SCH (08:36)
[2018-02-22] MEDS ORDERED: ASCORBIC ACID 500 MG TABLET PO SCH (09:00)
[2018-02-22] MEDS ORDERED: HYDROcodone/APAP 5/325 TABLET PO PRN (10:00)
[2018-02-22] MEDS ORDERED: LIDODERM 5% PATCH TD SCH (10:00)
[2018-02-22] MEDS ORDERED: METHOCARBAMOL 500 MG TABLET PO SCH (11:00)
[2018-02-22 12:13] LABS: INTERNATIONAL NORMALIZED RATIO 1.19 (0.93-1.1); PROTHROMBIN TIME 12.5 Seconds (9.6-11.5)
[2018-02-22] MEDS ORDERED: ASCO500T6 PO (12:46)
[2018-02-22] MEDS ORDERED: OMEP-110 PO (12:46)
[2018-02-22] MEDS ORDERED: FERR-51 PO (12:46)
[2018-02-22] MEDS ORDERED: WARF2TAB PO-COUM (12:46)
[2018-02-22] MEDS ORDERED: WARFARIN 2 MG TABLET PO-COUM ONE ×2 (13:33→18:00)
== END 2018-02-22 14:48 | disposition home or self-care (01) ==
LOC: ED 13:22 → EDIP 14:26 → INTOOBSV 14:26 → 4WST 15:41 → DCLOUNGE 02-22 14:13
PROVIDERS: ADMIT Internal Medicine; ATTEND Internal Medicine
DX: K25.4 Chronic or unspecified gastric ulcer with hemorrhage (principal); N17.0 Acute kidney failure with tubular necrosis; D62 Acute posthemorrhagic anemia; D68.59 Other primary thrombophilia; C49.A2 Gastrointestinal stromal tumor of stomach; K26.4 Chronic or unspecified duodenal ulcer with hemorrhage; F17.210 Nicotine dependence, cigarettes, uncomplicated; G47.33 Obstructive sleep apnea (adult) (pediatric); I10 Essential (primary) hypertension; E78.5 Hyperlipidemia, unspecified; I73.9 Peripheral vascular disease, unspecified; I48.0 Paroxysmal atrial fibrillation; J44.9 Chronic obstructive pulmonary disease, unspecified; Z79.01 Long term (current) use of anticoagulants; Z82.49 Family history of ischemic heart disease and other diseases of the circulatory system; Z90.49 Acquired absence of other specified parts of digestive tract
CPT/HCPCS: 36415; 43239; 80048; 80053; 82607; 82728; 83540; 83550; 84443; 84484; 85014; 85018; 85025; 85610; 86850; 86900; 86923; 88305; 93005; 96361; 96372; 96374; 96375; 96376; 99285; C9113; G0378; J2250; J2270; J2405; J3010; J3430; J7030; J7040; P9016

== ENCOUNTER 2018-03-07 09:54 | Inpatient (IN) | payer MEDICARE, OTHER ==
[~2018-03-07] VITALS: Ht 182.9 cm; Wt 103.9 kg
[~2018-03-07 09:54] MED LIST changes: +ASCO500T6 PO; +BUPIVACAINE/PF-EPI 0.5% 1:200K ONE; +FERR-51 PO; +OMEP-110 PO; +WARF2TAB PO-COUM
[2018-03-07] MEDS ORDERED: LACTATED RINGERS 1,000 ML IV SCH (10:39)
[2018-03-07 10:42] VITALS: BP 167/75
[2018-03-07] MEDS ORDERED: ACETAMINOPHEN 500 MG TABLET PO STA (12:01)
[2018-03-07] MEDS ORDERED: GABAPENTIN 300 MG CAPSULE PO STA (12:01)
[2018-03-07] MEDS ORDERED: SCOPOLAMINE PATCH, 1.5MG PATCH.TD72 TD STA (12:01)
[2018-03-07] MEDS ORDERED: MIDAZOLAM 1 MG/ML, 2ML ONE (12:04)
[2018-03-07] MEDS ORDERED: FENTANYL PF 250 MCG/5ML ONE (12:04)
[2018-03-07] MEDS ORDERED: ROCURONIUM 10MG/ML,5ML ONE (12:05)
[2018-03-07] MEDS ORDERED: PROPOFOL 10 MG/ML, 20ML ONE (12:05)
[2018-03-07] MEDS ORDERED: LIDOCAINE-MPF 2% ,5ML ONE (12:06)
[2018-03-07] MEDS ORDERED: ONDANSETRON 2MG/ML, 2ML ONE ×2 (12:38)
[2018-03-07] MEDS ORDERED: DEXAMETHASONE 4 MG/ML, 1ML ONE ×2 (12:38)
[2018-03-07] MEDS ORDERED: SUGAMMADEX 200 MG/2 ML IVPush ONE (12:50)
[2018-03-07] MEDS ORDERED: CEFOTETAN PMX 2GM/50ML 50 ML IVPB ONE (12:50)
[2018-03-07] MEDS: LACTATED RINGERS 1,000 ML IV SCH ×2 (13:57→18:08)
[2018-03-07] MEDS ORDERED: hydrALAzine 20 MG/ML, 1ML IV PRN ×2 (14:00→14:30)
[2018-03-07] MEDS ORDERED: PROMETHAZINE 12.5 MG SUPP PR PRN (14:00)
[2018-03-07] MEDS ORDERED: morphine SULFATE 10 MG/ML, 1ML IV PRN (14:00)
[2018-03-07] MEDS ORDERED: PROMETHAZINE 25 MG/ML, 1ML IM PRN (14:00)
[2018-03-07] MEDS ORDERED: LORazepam 2 MG/ML, 1ML IV PRN (14:00)
[2018-03-07] MEDS ORDERED: ENALAPRILAT 1.25 MG/ML, 2ML IV PRN (14:00)
[2018-03-07] MEDS ORDERED: ONDANSETRON 2MG/ML, 2ML IVPush PRN (14:00)
[2018-03-07] MEDS ORDERED: MORPHINE SULFATE 4 MG/ML, 1ML ONE (14:27)
[2018-03-07] MEDS ORDERED: PROMETHAZINE 25 MG/ML, 1ML IV PRN (14:30)
[2018-03-07] MEDS ORDERED: ACETAMINOPHEN 325 MG TABLET PO PRN (14:30)
[2018-03-07] MEDS ORDERED: HALOPERIDOL 5 MG/ML IV PRN (14:30)
[2018-03-07] MEDS ORDERED: MEPERIDINE/PF 25MG/0.5ML IVPush PRN (14:30)
[2018-03-07] MEDS ORDERED: FENTANYL PF 100 MCG/2ML IV PRN ×2 (14:30)
[2018-03-07] MEDS ORDERED: MORPHINE SULFATE 4 MG/ML, 1ML IVPush PRN (14:30)
[2018-03-07] MEDS ORDERED: OXYcodone 5 MG/5 ML ORAL.SOL UDC PO PRN (14:30)
[2018-03-07] MEDS ORDERED: HYDROmorphone 2 MG/ML, 1ML IVPush PRN (14:30)
[2018-03-07] MEDS ORDERED: DIPHENHYDRAMINE 50 MG/ML, 1ML ONE (15:01)
[2018-03-07] MEDS: DIPHENHYDRAMINE 50 MG/ML, 1ML IV PRN (15:05)
[2018-03-07] MEDS ORDERED: DIPHENHYDRAMINE 50 MG/ML, 1ML IVPush ONE (15:30)
[2018-03-07] MEDS: [UNRECOGNIZED DRUG - REMARK] MC SCH (16:00)
[2018-03-07] MEDS: HYDROcodone/APAP 7.5-325MG/15ML UDC PO PRN ×2 (16:58→20:49)
[2018-03-07] MEDS: PENTOXIFYLLINE 400 MG TABLET.ER PO SCH ×2 (18:08→20:26)
[2018-03-07 19:00] VITALS: BP 118/58
[2018-03-07] MEDS: TERAZOSIN 5MG CAPSULE PO SCH (20:26)
[2018-03-07] MEDS: PRAVASTATIN 40 MG TABLET PO SCH (20:26)
[2018-03-07] MEDS: LOSARTAN 50MG TABLET PO SCH (21:00)
[2018-03-08 00:05] VITALS: BP 115/61
[2018-03-08] MEDS: DIPHENHYDRAMINE 50 MG/ML, 1ML IV PRN (01:32)
[2018-03-08] MEDS: LACTATED RINGERS 1,000 ML IV SCH ×3 (02:06→17:11)
[2018-03-08 05:52] LABS: BASOPHILS # (AUTO) 0.04 x10^3/uL (0-0.1); BASOPHILS % (AUTO) 1 % (0-1); EOSINOPHILS % (AUTO) 0 % (1-7); LYMPHOCYTES # (AUTO) 0.62 x10^3/uL (1-3.4); LYMPHOCYTES % (AUTO) 10 % (22-44); MD NO; MEAN CORPUSCULAR HEMOGLOBIN 33.9 pg (27.5-34.5); MEAN CORPUSCULAR HGB CONC 32.9 g/dL (33.2-36.2); MEAN CORPUSCULAR VOLUME 103.2 fL (81-97); MEAN PLATELET VOLUME 6.7 fL (7.4-10.4); MONOCYTES # (AUTO) 0.37 x10^3/uL (0.2-0.8); MONOCYTES % (AUTO) 6 % (2-9); NEUTROPHILS # (AUTO) 5.36 x10^3/uL (1.8-6.8); NEUTROPHILS % (AUTO) 84 % (42-75); PLATELET COUNT 263 x10^3/uL (130-400); RED BLOOD COUNT 3.03 x10^6/uL (4.38-5.82); RED CELL DISTRIBUTION WIDTH 16.3 % (9.4-14.8)
[2018-03-08 07:01] VITALS: BP 134/79
[2018-03-08] MEDS: [UNRECOGNIZED DRUG - REMARK] MC SCH ×2 (08:00)
[2018-03-08] MEDS: PANTOPRAZOLE 40 MG IV IVPush SCH (08:01)
[2018-03-08] MEDS: PENTOXIFYLLINE 400 MG TABLET.ER PO SCH ×3 (08:02→19:52)
[2018-03-08] MEDS: ENOXAPARIN 30 MG/0.3 ML SQ SCH ×3 (08:03→21:32)
[2018-03-08] MEDS: DILTIAZEM HCL 300 MG PO SCH (08:07)
[2018-03-08] MEDS: HYDROcodone/APAP 7.5-325MG/15ML UDC PO PRN ×3 (08:15→19:51)
[2018-03-08] MEDS: LOSARTAN 50MG TABLET PO SCH ×2 (09:00→19:53)
[2018-03-08 15:51] VITALS: BP 143/93
[2018-03-08 19:06] VITALS: BP 122/74
[2018-03-08] MEDS: TERAZOSIN 5MG CAPSULE PO SCH (19:52)
[2018-03-08] MEDS: PRAVASTATIN 40 MG TABLET PO SCH (19:53)
[2018-03-08 20:12] LABS: INTERNATIONAL NORMALIZED RATIO 1.13 (0.93-1.1); PROTHROMBIN TIME 11.9 Seconds (9.6-11.5)
[2018-03-08] MEDS ORDERED: WARFARIN 7.5 MG TABLET PO-COUM SCH (21:00)
[2018-03-09 01:43] VITALS: BP 124/73
[2018-03-09] MEDS: HYDROcodone/APAP 7.5-325MG/15ML UDC PO PRN ×2 (02:01→06:21)
[2018-03-09] MEDS: LACTATED RINGERS 1,000 ML IV SCH ×2 (02:22→10:22)
[2018-03-09 04:54] LABS: INTERNATIONAL NORMALIZED RATIO 1.13 (0.93-1.1); PROTHROMBIN TIME 11.9 Seconds (9.6-11.5)
[2018-03-09] MEDS: PANTOPRAZOLE 40 MG IV IVPush SCH (08:18)
[2018-03-09] MEDS: ENOXAPARIN 30 MG/0.3 ML SQ SCH (08:19)
[2018-03-09] MEDS: LOSARTAN 50MG TABLET PO SCH (08:19)
[2018-03-09] MEDS: DILTIAZEM HCL 300 MG PO SCH (08:19)
[2018-03-09] MEDS: PENTOXIFYLLINE 400 MG TABLET.ER PO SCH (08:19)
[2018-03-09 09:03] VITALS: BP 115/74
[2018-03-09 10:42] VITALS: BP 132/71
[2018-03-09] MEDS ORDERED: HYDR473S47 PO (11:21)
== END 2018-03-09 11:40 | disposition home or self-care (01) | DRG 544 ==
LOC: OUT 09:54 → ORIP 13:57 → 4NOR 15:31 → DCLOUNGE 03-09 11:18
PROVIDERS: ADMIT Thoracic Surgery (Cardiothoracic Vascular Surgery); ATTEND Thoracic Surgery (Cardiothoracic Vascular Surgery)
PROC: 0DB64ZZ Excision of Stomach, Percutaneous Endoscopic Approach (ICD-10-PCS; principal; 2018-03-07 13:30)
DX: C49.A2 Gastrointestinal stromal tumor of stomach (principal); Z79.01 Long term (current) use of anticoagulants
CPT/HCPCS: 36415; 85025; 85610; 86850; 86900; 88309; G0378; J1100; J1650; J2250; J2405; J2704; J3010; J3490; C9113; J1200; J7120